=== PATIENT | male | born 1960 | race Caucasian/White ===

== ENCOUNTER 2021-02-13 00:06 | Inpatient (IN) ==
[2021-02-13] MEDS ORDERED: ALBUT/IPRATROP 3MG/0.5MG NEB 3 ML VIAL NEB STA (00:34)
[2021-02-13 00:42] LABS: Eosinophils # (auto) 0.01 K/uL (0-0.5); Eosinophils % (auto) 0.1 %; Hematocrit (blood only) 43.3 % (42-52); Hemoglobin 14.8 g/dL (14.0-18.0); Immature Granulocytes # (auto) 0.02 K/uL (0.00-0.02); Immature Granulocytes % (auto) 0.3 %; Lymphocytes # (auto) 0.44 K/uL (1.2-3.4); Lymphocytes % (auto) 6.4 %; Mean Corpuscular Hemoglobin 31.8 pg (25-34); Mean Corpuscular Hgb Conc 34.2 g/dL (32-36); Mean Corpuscular Volume 92.9 fL (80-100); Mean Platelet Volume 10.4 fL (7.4-10.4); Monocytes # (auto) 0.35 K/uL (0.11-0.59); Monocytes % (auto) 5.1 %; Neutrophils # (auto) 6.06 K/uL (1.4-6.5); Neutrophils % (auto) 88.1 %; Platelet Count 184 K/uL (130-400); RDW Standard Deviation 40.5 fL (36.4-46.3); Red Blood Count 4.66 M/uL (4.7-6.1); White Blood Count 6.88 K/uL (4.8-10.8)
[2021-02-13 01:08] LABS: Alanine Aminotransferase 100 (12-78); Aspartate Aminotransferase 85 U/L (15-37); BUN Creatinine Ratio 15.6 (10-20); Blood Urea Nitrogen 12 mg/dl (7-18); Calcium 9.1 mg/dl (8.5-10.1); Carbon Dioxide 26 mmol/L (21-32); Chloride 102 mmol/L (98-107); Creatinine Clr Calc Pharmacy 90.7 ml/min; Est GFR (African American) 115.9 ml/min; Glucose 148 mg/dl (70-99); Magnesium 1.9 mg/dl (1.8-2.4); Potassium 3.7 mmol/L (3.5-5.1); Sodium 137 mmol/L (136-145)
[2021-02-13 01:24] LABS: Albumin Globulin Ratio 0.6 (0.9-2); Alkaline Phosphatase 79 U/L (45-117); Bilirubin,Total 0.9 mg/dl (0.2-1); Globulin 4.9 gm/dl (2.5-4.0); NT Pro B Type Natriuretic Pept 100 pg/ml (0-900); Thyroid Stimulating Hormone 0.477 uIu/ml (0.300-4.500); Total Protein 7.9 gm/dl (6.4-8.2); Troponin I < 0.015 ng/ml (0-0.045)
[2021-02-13 01:27] LABS: Influenza A virus by PCR Negative (Neg); Influenza B virus by PCR Negative (Neg); RSV by PCR Negative (Neg)
[2021-02-13 01:44] LABS: SARS CoV2 RNA(COVID-19) InHosp POSITIVE (Negative)
[2021-02-13] MEDS ORDERED: DEXAMETHASONE SOD INJ 4 MG/ML VIAL IV STA (01:50)
--- NOTE | 2021-02-13 01:55 | Emergency Department Note ---
History of Present Illness General Chief complaint: Respiratory Distress Stated complaint: FALL, BACK PAIN, COVID+, COUGH Time Seen by Provider: 02/13/21 00:34 Source: patient Mode of arrival: EMS Limitations: no limitations History of Present Illness Provider complaint: back pain, cough, COVID Onset (ago): day(s) 9 Maximum Pain Intensity: 9 Exacerbated By: + movement Associated symptoms: + cough, + fever/chills, + loss of appetite, + malaise and + shortness of breath; no chest pain, no headaches or no nausea/vomiting This is a 60-year-old male presents the emergency department complaining of trouble breathing, cough, and back pain. Patient states he does have history of chronic back pain and has previously had surgery from Dr. Moeller. Patient states he tripped over his robe and fell awkwardly and "tweaked" his back. Patient states coughing makes his back pain hurt more. Patient states he first became ill the weekend following and was found to be positive for Covid. He believes there was a sick contact at dinner. Patient states he has been using OTC medications for his symptoms. He was not vaccinated against Covid. Patient states he has had a frequent coarse cough and intermittent difficulty breathing. He states he has not had a normal appetite but is not had any vomiting. He states he has had diarrhea. Denies leg swelling or rash. He states he has intermittent chest pain which she attributes to the coughing. He states he is a previous smoker, no use of MDI/nebs at home, no use of home oxygen. Denies any other history of pulmonary problems. In triage, patient found to be 78% on room air by nursing staff and was immediately placed on a room. Supplemental oxygen was started and I was called to the room immediately. My arrival patient had been transition to anoxia mask and was between 4 and 5 L, and the nurse continue to titrate up as he was still in the 80s. Pt seen during a time of high acuity and national emergency pandemic while wearing PPE. Home Medications Medication Instructions Recorded Confirmed Type albuterol sulfate 90 mcg/actuation 1 - 2 puff INHALATION UD PRN 02/13/21 02/13/21 History aerosol inhaler baclofen 10 mg tablet 10 - 20 mg PO TID 02/13/21 02/13/21 History gabapentin 800 mg tablet 800 mg PO TID 02/13/21 02/13/21 History oxycodone-acetaminophen 10 mg-325 1 tab PO Q6 PRN 02/13/21 02/13/21 History mg tablet tizanidine 4 mg tablet 2 mg PO HS 02/13/21 02/13/21 History Allergies Allergy/AdvReac Type Severity Reaction Status Date / Time No Known Allergies Allergy Unknown NKA Verified 02/13/21 00:55 Past Med/Surg History Medical History Chronic pain syndrome Social History Smoking Status: Former smoker Feels Safe at Home: Yes Review of Systems A total of 10 systems reviewed and were otherwise negative All systems reviewed & are unremarkable except as noted in HPI & below Physical Exam Vital Signs Vital Signs - 24 hr 02/13/21 00:15 02/13/21 00:55 02/13/21 02:07 Temperature 37.2 C Temperature Source Temporal Artery Scan Pulse Rate 93 H Pulse Rate [Right Finger] 80 83 Pulse Rhythm [Right Finger] Regular Regular Pulse Strength [Right Finger] Normal Normal Respiratory Rate 36 H 18 18 Respiratory Effort / Characteristics Non-Labored Spontaneous Non-Labored Spontaneous Respiratory Depth Normal Normal Respiratory Pattern Regular Regular Blood Pressure 119/71 Blood Pressure [Right Arm] 131/85 114/64 Blood Pressure Mean 87 Blood Pressure Mean [Right Arm] 100 80 Blood Pressure Position [Right Arm] Sitting Lying Pulse Oximetry 80 L 95 93 Oxygen Delivery Method Room Air Oxymask Oxymask Oxygen Flow Rate 8 8 Sepsis Recent Fever Within 48 Hours Yes Sepsis New/Unexplained Change in Mental Status No Sepsis Action Taken by Nursing No Action Required GENERAL: alert, ill appearing, well nourished, no distress, non-toxic EYE EXAM: normal conjunctiva, PERRL and EOM's grossly intact OROPHARYNX: no exudate, no erythema, lips, buccal mucosa, and tongue normal and mucous membranes are moist NECK: supple, no nuchal rigidity, no adenopathy, non-tender LUNGS: Clear to auscultation. Normal chest wall mechanics, no w/r/r, 86% on 4 L on an oxy mask, being titrated up by nursing staff HEART: no murmurs, S1 normal and S2 normal ABDOMEN: abdomen soft, non-tender, normo-active bowel sounds, no masses, no rebound or guarding. BACK: Back is symmetrical on inspection and there is no deformity, mild lumbar midline tenderness, no CVA tenderness. No evidence of trauma. SKIN: no rashes and no bruising UPPER EXTREMITIES: upper extremities are grossly normal. FROM, nml pulses b/l. LOWER EXTREMITIES: No pitting edema. FROM, nml pulses b/l. NEURO EXAM: Normal sensorium, cranial nerves II-XII grossly intact, normal speech, no gross weakness of arms, no gross weakness of legs. Gross sensation intact. Course Administered Medications Discontinued Medications Albuterol (Albut/Ipratrop 3mg/0.5mg Neb 3 Ml Vial) 3 ml NEB NOW STA Stop: 02/13/21 00:35 Last Admin: 02/13/21 00:53 Dose: 3 ml Documented by: [id number] Dexamethasone (Dexamethasone Sod Inj 4 Mg/Ml Vial) 6 mg IV NOW STA Stop: 02/13/21 01:51 Last Admin: 02/13/21 02:08 Dose: 6 mg Documented by: [id number] Remdesivir 200 mg/ Sodium (Chloride) 250 mls @ 125 mls/hr IV ONE STA; Protocol Stop: 02/13/21 04:21 Last Admin: 02/13/21 02:56 Dose: 125 mls/hr Documented by: [id number] Medical Decision Making Differential Diagnosis Differential diagnoses includes but is not limited to pneumonia, bronchitis, COPD/Asthma exacerbation, pneumothorax, pulmonary embolism, congestive heart failure, acute coronary syndrome Medical Records Attestation: I reviewed the patient's medical records. Home Medications Current Medication List: was personally reviewed by me Laboratory Data Attestation: I reviewed the patient's lab results. Result diagrams: 02/13/21 00:29 02/13/21 00:29 Lab Results 02/13/21 02/13/21 02/13/21 Range/Units 00:29 00:29 00:32 WBC 6.88 (4.8-10.8) K/uL RBC 4.66 L (4.7-6.1) M/uL Hgb 14.8 (14.0-18.0) g/dL Hct 43.3 (42-52) % MCV 92.9 (80-100) fL MCH 31.8 (25-34) pg MCHC 34.2 (32-36) g/dL RDW Std Deviation 40.5 (36.4-46.3) fL RDW Coeff of Tariq 12.0 (11.5-14.5) % Plt Count 184 (130-400) K/uL MPV 10.4 (7.4-10.4) fL Immature Gran % (Auto) 0.3 % Neut % (Auto) 88.1 % Lymph % (Auto) 6.4 % [place] % (Auto) 5.1 % Eos % (Auto) 0.1 % Baso % (Auto) 0.0 % Neut # (Auto) 6.06 (1.4-6.5) K/uL Lymph # (Auto) 0.44 L (1.2-3.4) K/uL [place] # (Auto) 0.35 (0.11-0.59) K/uL Eos # (Auto) 0.01 (0-0.5) K/uL Baso # (Auto) 0.00 (0-0.2) K/uL Immature Gran # (Auto) 0.02 (0.00-0.02) K/uL Sodium 137 (136-145) mmol/L Potassium 3.7 (3.5-5.1) mmol/L Chloride 102 (98-107) mmol/L Carbon Dioxide 26 (21-32) mmol/L Anion Gap 9.0 (3-11) BUN 12 (7-18) mg/dl Creatinine 0.77 (0.6-1.4) mg/dl Est Cr Clr Drug Dosing 90.7 ml/min Est GFR ( Amer) 115.9 ml/min Est GFR (Non-Af Amer) 100.0 ml/min BUN/Creatinine Ratio 15.6 (10-20) Glucose 148 H (70-99) mg/dl Calcium 9.1 (8.5-10.1) mg/dl Magnesium 1.9 (1.8-2.4) mg/dl Total Bilirubin 0.9 (0.2-1) mg/dl AST 85 H (15-37) U/L ALT 100 H (12-78) Alkaline Phosphatase 79 (45-117) U/L Troponin I < 0.015 (0-0.045) ng/ml NT-Pro-B Natriuret Pep 100 (0-900) pg/ml Total Protein 7.9 (6.4-8.2) gm/dl Albumin 3.0 L (3.4-5.0) gm/dl Globulin 4.9 H (2.5-4.0) gm/dl Albumin/Globulin Ratio 0.6 L (0.9-2) TSH 0.477 (0.300-4.500) uIu/ml SARS-CoV-2 (PCR) POSITIVE A* (Negative) Influenza Type A (PCR) Negative (Neg) Influenza Type B (PCR) Negative (Neg) RSV (RT-PCR) Negative (Neg) Imaging Data My Impression: X-ray: I interpreted the following studies. Chest: A single view study of the chest was reviewed and was negative for cardiomegaly, effusion, or wide mediastinum. Evolving bilateral infiltrates suggestive of acute Covid related pneumonia. ECG Data Attestation: I personally reviewed and interpreted this ECG as follows: Indication: + SOB/dyspnea Rate (beats per minute): 76 Rhythm: + normal sinus ECG Intervals/blocks: + Normal QRS and + Normal QT ECG [place]: + Normal ECG ST segments: + Normal ST segments MDM Narrative This is an ill-appearing 60-year-old male with a known history of Covid approximately day 8 in his disease course who presents due to increased cough, trouble breathing, and worsening back pain secondary to a fall. Patient's description of the fall is mechanical and I suspect likely musculoskeletal strain in a patient with history of chronic back pain and prior surgery. Patient's chest x-ray suggestive of pneumonia. Patient was placed on supplemental oxygen due to his hypoxia and slowly improved with titration up to 8 L/min. Patient otherwise hemodynamically stable. Mild elevation of transaminases noted although this is likely secondary to his viral infection. Patient made aware of results and concern especially regarding his breathing. Patient was started on dexamethasone in case discussed with hospitalist for additional management. At this time I do not suspect PE, Covid related myocarditis or pericarditis, or CHF. An order was placed for continuous cardiac monitoring. The monitor shows a rate of _76_ with _normal sinus__ rhythm. Impression & Plan Acute respiratory failure with hypoxia, Multifocal pneumonia, COVID-19, Back pain, Abnormal LFTs, Hyperglycemia Discharge Plan Visit Data Chief Complaint: Respiratory Distress Stated Complaint: FALL, BACK PAIN, COVID+, COUGH ED Provider: Lacy You Discharge Problem: Acute respiratory failure with hypoxia, Multifocal pneumonia, COVID-19, Back pain, Abnormal LFTs, Hyperglycemia Patient Disposition: Admitted As Inpatient Discharge Instructions Interventions: ED Discharge Assessment Last Done: 02/13/21 04:21 Discharge Problem: Back pain Qualifiers: Back pain location: low back pain Chronicity: chronic Back pain laterality: midline Sciatica presence: without sciatica Qualified Code(s): M54.50 - Low back pain, unspecified
[2021-02-13] MEDS ORDERED: REMDESIVIR 200 MG in SODIUM CHLORIDE 0.9% 210 ML IV STA (02:22)
--- NOTE | 2021-02-13 02:22 | History & Physical Report ---
Date of Service February 13, 2021 Assessment & Plan (1) Pneumonia due to COVID-19 virus: Plan: Multifocal pneumonia due to COVID-19 virus/acute respiratory failure with hypoxia- Dexamethasone 10 mg IV while in the ED Dexamethasone 6 mg IV every morning Remdesivir IV per protocol Duonebs every 4 hours while awake and every 2 hours when necessary. Guaifenesin extended release 1200 mg p.o. twice daily Azithromycin 500 mg IV daily Vitamin D 1000 international units p.o. every morning Zinc sulfate turn 20 mg p.o. every morning Lovenox subcu prophylaxis Nasal cannula oxygen, titrate to keep pulse ox 92 to 94% (2) Hypoxia: Plan: See above (3) Acute respiratory failure with hypoxia: Plan: See above (4) Chronic pain syndrome: Plan: Continue usual medications (5) Abnormal LFTs: Plan: AST 85, ALT 100. Follow serially in a.m., may be secondary to Covid infection (6) Multifocal pneumonia: Plan: See above History of Present Illness Chief Complaint: The patient presents to the emergency department with complaint of cough, fever and chills, loss of appetite, loss of taste and smell, generalized myalgias and arthralgias, shortness of breath and dyspnea on exertion, worsening over the past week, with onset of symptoms 9 days ago Primary Care Provider: NO PCP The patient is a 60-year-old male with chronic low back pain associated with previous surgeries, who presents with symptoms as noted above. Abnormal laboratories: AST 85, ALT 100, albumin 3.0, glucose 148. COVID-19 positive Chest x-ray with multifocal pneumonia Pulse ox 80% on room air, improved with 8 L oxygen mask to 95% Allergies Allergy/AdvReac Type Severity Reaction Status Date / Time No Known Allergies Allergy Unknown NKA Verified 02/13/21 00:55 Home Medications Medication Instructions Recorded Confirmed Type albuterol sulfate 90 mcg/actuation 1 - 2 puff INHALATION UD PRN 02/13/21 02/13/21 History aerosol inhaler baclofen 10 mg tablet 10 - 20 mg PO TID 02/13/21 02/13/21 History gabapentin 800 mg tablet 800 mg PO TID 02/13/21 02/13/21 History oxycodone-acetaminophen 10 mg-325 1 tab PO Q6 PRN 02/13/21 02/13/21 History mg tablet tizanidine 4 mg tablet 2 mg PO HS 02/13/21 02/13/21 History Past Med/Surg History Medical History (Updated 02/13/21 @ 04:37 by Paxton Cisse MD) Chronic pain syndrome Social History Smoking Status: Former smoker Feels Safe at Home: Yes Review of Systems Review of Systems: The patient denies chest pain, palpitations, lower extremity swelling, sore throat, fevers, chills, sweats, nausea, vomiting, diarrhea , constipation, abdominal pain, pelvic pain, blood in urine or stool, dysuria, urinary frequency or urgency, lightheadedness, dizziness, headache, memory loss, loss of consciousness, rash, abnormal bruising or bleeding, focal weakness, numbness or tingling in arms or legs, neck pain, or night sweats. The review of systems is otherwise negative other than for that already noted above, and at least 10 systems have been reviewed. Physical Exam Physical Exam: The patient is awake, alert and oriented 3, well developed and well nourished, normocephalic and atraumatic, lying in bed on his side, and in mild acute distress. HEENT--PERRL, EOMI, mucous membranes and oropharynx dry. Neck--supple. No JVD. No bruits. Thyroid normal, trachea midline, no adenopathy . Heart--normal S1 and S2. No murmurs, rubs or gallops. Lungs--coarse breath sounds bilaterally. Mild respiratory distress, no accessory muscle use. Abdomen--normal bowel sounds and soft. Nontender. Nondistended. Extremities--no cyanosis or clubbing. No edema. Dermatologic--normal skin turgor, normal color, no abnormal lymph nodes, no rash. Neurologic--cranial nerves II through XII grossly intact. Rheumatologic--limited exam due to generalized pain Psychiatric--normal affect. Results & Data Results & Data ([facility]) Vital Signs (Past 12 Hours) Vital Signs Temp Pulse Pulse Resp BP BP Pulse Ox 02/13/21 00:55 80 18 131/85 95 02/13/21 00:15 37.2 C 93 H 36 H 119/71 80 L Laboratory Results Laboratory Results WBC 6.88 K/uL (4.8-10.8) 02/13/21 00:29 RBC 4.66 M/uL (4.7-6.1) L 02/13/21 00: Hgb 14.8 g/dL (14.0-18.0) 02/13/21: Hct 43.3 % (42-52) 02/13/21: MCV 92.9 fL (80-100) 02/13/21 00: MCH 31.8 pg (25-34) 02/13/21: MCHC 34.2 g/dL (32-36) 02/13/21: RDW Std Deviation 40.5 fL (36.4-46.3) 02/13/21: RDW Coeff of Tariq 12.0 % (11.5-14.5) 02/13/21: Plt Count 184 K/uL (130-400) 02/13/21: MPV 10.4 fL (7.4-10.4) 02/13/21 00: Immature Gran % (Auto) 0.3 % 02/13/21: Neut % (Auto) 88.1 % 02/13/21: Lymph % (Auto) 6.4 % 02/13/21: [place] % (Auto) 5.1 % 02/13/21: Eos % (Auto) 0.1 % 02/13/21: Baso % (Auto) 0.0 % 02/13/21 00:29 Neut # (Auto) 6.06 K/uL (1.4-6.5) 02/13/21 00: Lymph # (Auto) 0.44 K/uL (1.2-3.4) L 02/13/21 00: [place] # (Auto) 0.35 K/uL (0.11-0.59) 02/13/21 00: Eos # (Auto) 0.01 K/uL (0-0.5) 02/13/21 00: Baso # (Auto) 0.00 K/uL (0-0.2) 02/13/21 00: Immature Gran # (Auto) 0.02 K/uL (0.00-0.02) 02/13/21 00: Sodium 137 mmol/L (136-145) 02/13/21:29 Potassium 3.7 mmol/L (3.5-5.1) 02/13/21 00: Chloride 102 mmol/L (98-107) 02/13/21 00: Carbon Dioxide 26 mmol/L (21-32) 02/13/21 00: Anion Gap 9.0 (3-11) 02/13/21 00: BUN 12 mg/dl (7-18) 02/13/21: Creatinine 0.77 mg/dl (0.6-1.4) 02/13/21: Est Cr Clr Drug Dosing 90.7 ml/min 02/13/21 00:29 Est GFR ( Amer) 115.9 ml/min 02/13/21 00:29 Est GFR (Non-Af Amer) 100.0 ml/min 02/13/21 00: BUN/Creatinine Ratio 15.6 (10-20) 02/13/21 00: Glucose 148 mg/dl (70-99) H 02/13/21: Calcium 9.1 mg/dl (8.5-10.1) 02/13/21 00: Magnesium 1.9 mg/dl (1.8-2.4) 02/13/21 00: Total Bilirubin 0.9 mg/dl (0.2-1) 02/13/21 00: AST 85 U/L (15-37) H 02/13/21 00:29 ALT 100 (12-78) H 02/13/21 00: Alkaline Phosphatase 79 U/L (45-117) 02/13/21 00: Troponin I < 0.015 ng/ml (0-0.045) 02/13/21 00: NT-Pro-B Natriuret Pep 100 pg/ml (0-900) 02/13/21 00: Total Protein 7.9 gm/dl (6.4-8.2) 02/13/21 00: Albumin 3.0 gm/dl (3.4-5.0) L 02/13/21 00:29 Globulin 4.9 gm/dl (2.5-4.0) H 02/13/21 00:29 Albumin/Globulin Ratio 0.6 (0.9-2) L 02/13/21 00: TSH 0.477 uIu/ml (0.300-4.500) 02/13/21 00:29 SARS-CoV-2 (PCR) POSITIVE (Negative) A* 02/13/21 00:32 Influenza Type A (PCR) Negative (Neg) 02/13/21 00:32 Influenza Type B (PCR) Negative (Neg) 02/13/21 00:32 RSV (RT-PCR) Negative (Neg) 02/13/21 00:32 Code Status & VTE Plan Code Status Full code VTE Prophylaxis Plan VTE Prophylaxis will be ordered: Yes PG Care Time/CCT Total # of Minutes Spent Total Time Spent with Patient: Total time spent is greater than 50% in coordination of care (as documented) at patient's floor/unit and/or counseling patient: Coding Level of Care Code 26601 Initial Inpt Care Lvl 3 Diagnoses Pneumonia due to COVID-19 virus U07.1; J12.82 Hypoxia R09.02 Acute respiratory failure with hypoxia J96.01 Chronic pain syndrome G89.4 Abnormal LFTs R79.89 Multifocal pneumonia J18.9
[2021-02-13] MEDS ORDERED: ONDANSETRON INJ 2 MG/ML 2 ML VIAL IV PRN (04:22)
[2021-02-13] MEDS ORDERED: SODIUM CHLORIDE 0.9% 10ML FLUSH IV SCH (05:00)
[2021-02-13] MEDS: AZITHROMYCIN 500 MG in DEXTROSE 5% 250 ML IV SCH (06:17)
[2021-02-13] MEDS ORDERED: ALBUT/IPRATROP 3MG/0.5MG NEB 3 ML VIAL NEB SCH (07:00)
--- NOTE | 2021-02-13 07:13 | XRay Report ---
XR chest 1V portable CLINICAL HISTORY: sob, hyopxia. Reported positive Covid COMPARISON STUDY: No previous studies for comparison. TECHNIQUE: 1 view of the chest FINDINGS: Single frontal view of the chest demonstrates the cardiomediastinal silhouette to be within normal li mits. Mild interstitial and alveolar opacities are present bilaterally. The findings are most charact eristic of a viral type pneumonitis. Covid 19 pneumonia should be excluded. There is no evidence for pleural effusion. There is no evidence for vascular congestion. There is no acute osseous pathology. IMPRESSION: Mild interstitial and alveolar opacities bilaterally characteristic of a viral type pneum onitis and probable early Covid 19 pneumonia. ACT 112: Negative or not required by law. Electronically signed by: Mekhi Phan M.D. 02/13/2021 7:12 AM
[2021-02-13] MEDS: dexAMETHasone 6 MG in SYRINGE 0 ML IV SCH (08:03)
[2021-02-13] MEDS: ZINC SULFATE 220 MG CAPSULE PO SCH (08:04)
[2021-02-13] MEDS: BACLOFEN 20 MG TAB PO SCH ×3 (08:04→21:19)
[2021-02-13] MEDS: GABAPENTIN 800 MG TAB PO SCH ×3 (08:04→21:21)
[2021-02-13] MEDS: ENOXAPARIN INJ 30 MG/0.3 ML SYR SQ SCH ×2 (08:04→21:26)
[2021-02-13] MEDS: CHOLECALCIFEROL 1,000 UNITS 25 MCG TAB PO SCH (08:04)
[2021-02-13] MEDS: guaiFENesin 600 MG TABCR PO SCH ×2 (08:04→21:20)
--- NOTE | 2021-02-13 08:15 | XRay Report ---
XR lumbar spine 2-3V CLINICAL HISTORY: back pain COMPARISON STUDY: Fluoroscopic images of the lumbar spine October 15, 2009. FINDINGS: There are postoperative findings consistent with L3-L4 and L4-L5 discectomies. Posterior de compression and bilateral pedicle screw fusion from L3 through L5 is noted. Hardware is intact. There is mild levoscoliosis of the lumbar spine. No acute fracture. Vertebral body heights are maintained. There is moderate disc space narrowing at L2-L3. IMPRESSION: 1. No acute lumbar spine fracture or subluxation. 2. Status post L3-L5 discectomy, posterior decompression bilateral pedicle screw fusion. Hardware int act. 3. Mild levoscoliosis of the lumbar spine. ACT 112: Negative or not required by law. Electronically signed by: César Walker M.D. 02/13/2021 8:14 AM
[2021-02-13] MEDS ORDERED: ALBUT/IPRATROP 3MG/0.5MG NEB 3 ML VIAL NEB PRN (08:33)
--- NOTE | 2021-02-13 15:52 | Electrocardiogram Report ---
Test Reason : Blood Pressure : / mmHG Vent. Rate : 076 BPM Atrial Rate : 076 BPM P-R Int : 154 ms QRS Dur : 090 ms QT Int : 400 ms P-R-T Axes : 040 012 028 degrees QTc Int : 450 ms Normal sinus rhythm Normal ECG When compared with ECG of 08-OCT-2009 11:37, QT has lengthened Confirmed by Artur Olmedo ([id number]) on 02/13/2021 3:52:49 PM Referred By: REFERRED SELF Confirmed By:Artur Olmedo
--- NOTE | 2021-02-13 17:53 | History & Physical Bridge Note ---
Date of Service February 13, 2021 History & Physical Bridge Note I have examined the patient, reviewed the History & Physical and in the interval since the performance of the History & Physical I have noted the following changes of clinical significance: patient doing well on 7L, no distress, breathing easy eating a little better, had not eaten for days until today discussed that we will take this one day at a time, may need more oxygen before he gets better will check labs in the morning awaiting a bed outside of the ED at this time
[2021-02-13] MEDS: tiZANidine HCL 4 MG TABLET PO SCH (21:20)
[2021-02-13] MEDS: REMDESIVIR 100 MG in SODIUM CHLORIDE 0.9% 230 ML IV SCH (21:23)
[2021-02-13] MEDS: SODIUM CHLORIDE 0.9% 10ML FLUSH IV SCH (22:32)
[2021-02-14] MEDS: AZITHROMYCIN 500 MG in DEXTROSE 5% 250 ML IV SCH (06:04)
[2021-02-14 06:13] LABS: Basophils # (auto) 0.01 K/uL (0-0.2); Basophils % (auto) 0.1 %; Hematocrit (blood only) 39.3 % (42-52); Immature Granulocytes # (auto) 0.02 K/uL (0.00-0.02); Immature Granulocytes % (auto) 0.2 %; Lymphocytes # (auto) 0.29 K/uL (1.2-3.4); Lymphocytes % (auto) 3.5 %; Mean Corpuscular Hemoglobin 30.7 pg (25-34); Mean Corpuscular Hgb Conc 33.1 g/dL (32-36); Mean Corpuscular Volume 92.7 fL (80-100); Mean Platelet Volume 10.4 fL (7.4-10.4); Monocytes # (auto) 0.32 K/uL (0.11-0.59); Monocytes % (auto) 3.9 %; Neutrophils # (auto) 7.59 K/uL (1.4-6.5); Neutrophils % (auto) 92.3 %; Platelet Count 220 K/uL (130-400); RDW Standard Deviation 40.8 fL (36.4-46.3); Red Blood Count 4.24 M/uL (4.7-6.1); White Blood Count 8.23 K/uL (4.8-10.8)
[2021-02-14 06:56] LABS: Albumin Level 2.6 gm/dl (3.4-5.0); BUN Creatinine Ratio 30.8 (10-20); Calcium 9.1 mg/dl (8.5-10.1); Creatinine Clr Calc Pharmacy 114.3 ml/min; Est GFR (African American) 117.2 ml/min; Est GFR (Non-African American) 101.1 ml/min; Potassium 3.8 mmol/L (3.5-5.1)
[2021-02-14 06:59] LABS: Albumin Globulin Ratio 0.6 (0.9-2); Bilirubin,Total 0.7 mg/dl (0.2-1); Globulin 4.6 gm/dl (2.5-4.0); Total Protein 7.2 gm/dl (6.4-8.2)
--- NOTE | 2021-02-14 10:06 | Hospitalist Progress Note ---
Date of Service February 14, 2021 Assessment & Plan (1) Pneumonia due to COVID-19 virus: Plan: Multifocal pneumonia due to COVID-19 virus/acute respiratory failure with hypoxia currently he is on 9L mask, no distress, try to wean as tolerated dexamethasone 6mg IV daily, day 2 Remdesivir, day 2 Zithromax 500mg IV daily, day 2 flutter valve, incentive spirometer Lovenox prophylaxis (2) Hypoxia: Plan: acute hypoxic respiratory failure on 9L (3) Acute respiratory failure with hypoxia: Plan: See above (4) Chronic pain syndrome: Plan: Continue usual medications having low back pain from fall no fracturs on lumbar x-ray, has h/o surgery (5) Abnormal LFTs: Plan: AST 85, ALT 100. Follow serially in a.m., may be secondary to Covid infection (6) Multifocal pneumonia: Plan: See above Admission and Anticipated Discharge Date Admission Date: February 13, 2021 Subjective patient doing okay on 9L mask, coughing up a lot of sputum this morning deep breaths triggers coughing spells will get him flutter valve and incentive spirometer he is eating and drinking well reviewed chart and labs no fever, he is weak and fatigued c/o low back pain from a fall at home, he has a history of lumbar surgery Review of Systems Review of Systems: All systems reviewed & are unremarkable except as noted in Subjective Constitutional: + fatigue and + weakness; no fever Respiratory: + cough, + chest congestion, + dyspnea, + dyspnea on exertion and + sputum production Cardiovascular: no chest pain and no edema Gastrointestinal: + constipation; no nausea, no vomiting and no diarrhea/loose stools Musculoskeletal: + back pain (low) Physical Exam Physical Exam: General: well developed, ill appearing male, well hydrated and well nourished Neck: supple, trachea midline, normal thyroid Lungs: rhonchi bilaterally, slightly tachypneic, + accessory muscle use, + cough Heart: regular S1 and S2, no murmur, peripheral pulses normal, capillary refill normal, no edema Abdomen: soft, NT, ND, + BS, no hepatomegaly, normal to percussion Extremities: normal in appearance, no cyanosis, no petechiae, strength is 5/5 bilaterally Neuro: awake, cooperative, moves all extremities, no focal motor deficits, CN II-XII intact, sensation in extremities intact, normal speech Skin: warm, dry, no rash, normal turgor Psych: Awake, alert oriented x 3, euthymic affect Results & Data Results & Data ([facility]) Vital Signs (Past 12 Hours) Vital Signs Temp Pulse Resp BP Pulse Ox Pulse Ox 02/14/21 07:34 36.6 C 58 L 20 134/84 94 02/14/21 03:10 56 L 18 110/54 L 96 96 02/14/21 00:56 55 L 18 111/62 97 Laboratory Results Laboratory Results - last 24 hr 02/14/21 02/14/21 05:51 05:51 WBC 8.23 RBC 4.24 L Hgb 13.0 L Hct 39.3 L MCV 92.7 MCH 30.7 MCHC 33.1 RDW Std Deviation 40.8 RDW Coeff of Tariq 12.0 Plt Count 220 MPV 10.4 Immature Gran % (Auto) 0.2 Neut % (Auto) 92.3 Lymph % (Auto) 3.5 [place] % (Auto) 3.9 Eos % (Auto) 0.0 Baso % (Auto) 0.1 Neut # (Auto) 7.59 H Lymph # (Auto) 0.29 L [place] # (Auto) 0.32 Eos # (Auto) 0.00 Baso # (Auto) 0.01 Immature Gran # (Auto) 0.02 Sodium 139 Potassium 3.8 Chloride 107 Carbon Dioxide 25 Anion Gap 7.0 BUN 23 H D Creatinine 0.75 Est Cr Clr Drug Dosing 114.3 Est GFR ( Amer) 117.2 Est GFR (Non-Af Amer) 101.1 BUN/Creatinine Ratio 30.8 H Glucose 156 H Calcium 9.1 Total Bilirubin 0.7 AST 38 H ALT 67 Alkaline Phosphatase 67 Total Protein 7.2 Albumin 2.6 L Globulin 4.6 H Albumin/Globulin Ratio 0.6 L Medications Administered Current Inpatient Medications Albuterol (Albut/Ipratrop 3mg/0.5mg Neb 3 Ml Vial) 3 ml NEB Q4R PRN PRN Reason: Shortness Of Breath Or Wheezing Stop: 03/15/21 08:31 Baclofen (Baclofen 20 Mg Tab) 20 mg PO TID [facility] Stop: 03/15/21 08:59 Last Admin: 02/13/21 21:19 Dose: 20 mg Documented by: Enoxaparin Sodium (Enoxaparin Inj 30 Mg/0.3 Ml Syr) 30 mg SQ Q12H [facility] Stop: 03/15/21 08:59 Last Admin: 02/13/21 21:26 Dose: 30 mg Documented by: Gabapentin (Gabapentin 800 Mg Tab) 800 mg PO TID [facility] Stop: 03/15/21 08:59 Last Admin: 02/13/21 21:21 Dose: 800 mg Documented by: Guaifenesin (Guaifenesin 600 Mg Tabcr) 1,200 mg PO Q12 [facility] Stop: 03/15/21 08:59 Last Admin: 02/13/21 21:20 Dose: 1,200 mg Documented by: Dexamethasone 6 mg/ Syringe 1.5 mls @ 1 mls/min IV Q24H [facility] Stop: 03/15/21 08:59 Last Admin: 02/13/21 08:03 Dose: 1 mls/min Documented by: Remdesivir 100 mg/ Sodium (Chloride) 250 mls @ 250 mls/hr IV Q24H [facility]; Protocol Stop: 02/16/21 20:59 Last Infusion: 02/13/21 22:32 Dose: Infused Documented by: Azithromycin 500 mg/ Dextrose 255 mls @ 125 mls/hr IV Q24H [facility] Stop: 02/20/21 05:59 Last Infusion: 02/14/21 09:24 Dose: Infused Documented by: Ondansetron HCl (Ondansetron Inj 2 Mg/Ml 2 Ml Vial) 4 mg IV Q6H PRN PRN Reason: Nausea Stop: 03/15/21 04:21 Oxycodone/Acetaminophen (Oxycodone/Acetaminophen 10-325 Tab) 1 tab PO Q6 PRN PRN Reason: Moderate Pain Stop: 02/27/21 04:21 Sodium Chloride (Sodium Chloride 0.9% 10ml Flush) 30 ml IV Q24H [facility] Stop: 02/16/21 21:01 Last Admin: 02/13/21 22:32 Dose: 30 ml Documented by: Tizanidine HCl (Tizanidine Hcl 4 Mg Tablet) 2 mg PO HS [facility] Stop: 03/15/21 20:59 Last Admin: 02/13/21 21:20 Dose: 2 mg Documented by: Vitamin D (Cholecalciferol 1,000 Units 25 Mcg Tab) 1,000 units PO QAM [facility] Stop: 03/15/21 08:59 Last Admin: 02/13/21 08:04 Dose: 1,000 units Documented by: Zinc Sulfate (Zinc Sulfate 220 Mg Capsule) 220 mg PO QAM [facility] Stop: 03/15/21 08:59 Last Admin: 02/13/21 08:04 Dose: 220 mg Documented by: PG Care Time/CCT Total # of Minutes Spent Total Time Spent with Patient: Total time spent is greater than 50% in coordination of care (as documented) at patient's floor/unit and/or counseling patient: Coding Level of Care Code 83033 Subseq Hosp Care Lvl 2 Diagnoses Pneumonia due to COVID-19 virus U07.1; J12.82 Hypoxia R09.02 Acute respiratory failure with hypoxia J96.01 Chronic pain syndrome G89.4 Abnormal LFTs R79.89 Multifocal pneumonia J18.9
[2021-02-14] MEDS: CHOLECALCIFEROL 1,000 UNITS 25 MCG TAB PO SCH (10:45)
[2021-02-14] MEDS: BACLOFEN 20 MG TAB PO SCH ×3 (10:45→20:41)
[2021-02-14] MEDS: ZINC SULFATE 220 MG CAPSULE PO SCH (10:46)
[2021-02-14] MEDS: dexAMETHasone 6 MG in SYRINGE 0 ML IV SCH (10:46)
[2021-02-14] MEDS: guaiFENesin 600 MG TABCR PO SCH ×2 (10:46→20:42)
[2021-02-14] MEDS: ENOXAPARIN INJ 30 MG/0.3 ML SYR SQ SCH ×2 (10:46→20:41)
[2021-02-14] MEDS: GABAPENTIN 800 MG TAB PO SCH ×3 (10:46→20:41)
[2021-02-14] MEDS: REMDESIVIR 100 MG in SODIUM CHLORIDE 0.9% 230 ML IV SCH (20:40)
[2021-02-14] MEDS: tiZANidine HCL 4 MG TABLET PO SCH (20:42)
[2021-02-14] MEDS: SODIUM CHLORIDE 0.9% 10ML FLUSH IV SCH (21:59)
[2021-02-15] MEDS: AZITHROMYCIN 500 MG in DEXTROSE 5% 250 ML IV SCH (05:33)
[2021-02-15 05:47] LABS: Hematocrit (blood only) 38.2 % (42-52); Hemoglobin 12.7 g/dL (14.0-18.0); Immature Granulocytes # (auto) 0.03 K/uL (0.00-0.02); Immature Granulocytes % (auto) 0.4 %; Lymphocytes # (auto) 0.35 K/uL (1.2-3.4); Lymphocytes % (auto) 4.2 %; Mean Corpuscular Hemoglobin 30.9 pg (25-34); Mean Corpuscular Hgb Conc 33.2 g/dL (32-36); Mean Corpuscular Volume 92.9 fL (80-100); Mean Platelet Volume 10.4 fL (7.4-10.4); Monocytes # (auto) 0.36 K/uL (0.11-0.59); Monocytes % (auto) 4.3 %; Neutrophils # (auto) 7.56 K/uL (1.4-6.5); Neutrophils % (auto) 91.1 %; Platelet Count 256 K/uL (130-400); RDW Standard Deviation 40.8 fL (36.4-46.3); Red Blood Count 4.11 M/uL (4.7-6.1)
[2021-02-15 06:13] LABS: Albumin Level 2.5 gm/dl (3.4-5.0); BUN Creatinine Ratio 32.3 (10-20); Calcium 8.9 mg/dl (8.5-10.1); Creatinine Clr Calc Pharmacy 126.1 ml/min; Est GFR (Non-African American) 105.3 ml/min; Potassium 4.3 mmol/L (3.5-5.1)
[2021-02-15 06:15] LABS: Albumin Globulin Ratio 0.6 (0.9-2); Bilirubin,Total 0.5 mg/dl (0.2-1); Globulin 4.3 gm/dl (2.5-4.0); Total Protein 6.8 gm/dl (6.4-8.2)
[2021-02-15] MEDS ORDERED: FUROSEMIDE INJ 20 MG/2 ML VIAL IV ONE (07:52)
[2021-02-15] MEDS: ENOXAPARIN INJ 30 MG/0.3 ML SYR SQ SCH ×2 (08:06→20:52)
[2021-02-15] MEDS: GABAPENTIN 800 MG TAB PO SCH ×3 (08:07→20:53)
[2021-02-15] MEDS: guaiFENesin 600 MG TABCR PO SCH ×2 (08:07→20:54)
[2021-02-15] MEDS: BACLOFEN 20 MG TAB PO SCH ×3 (08:07→20:52)
[2021-02-15] MEDS: ZINC SULFATE 220 MG CAPSULE PO SCH (08:07)
[2021-02-15] MEDS: CHOLECALCIFEROL 1,000 UNITS 25 MCG TAB PO SCH (08:07)
[2021-02-15] MEDS: dexAMETHasone 6 MG in SYRINGE 0 ML IV SCH (09:25)
--- NOTE | 2021-02-15 13:57 | Hospitalist Progress Note ---
Date of Service February 15, 2021 Assessment & Plan (1) Pneumonia due to COVID-19 virus: Plan: Multifocal pneumonia due to COVID-19 virus/acute respiratory failure with hypoxia oxygen requirements trending up, was on 9L yesterday, now on 12-15L mask today dexamethasone 6mg IV daily, day 3 Remdesivir, day 3 Zithromax 500mg IV daily, day 3 Lasix 20mg IV given this morning with good response treat again tomorrow if he is eating/drinking well flutter valve, incentive spirometer Lovenox prophylaxis (2) Hypoxia: Plan: acute hypoxic respiratory failure on 12-15L mask (3) Acute respiratory failure with hypoxia: Plan: See above (4) Chronic pain syndrome: Plan: Continue usual medications having low back pain from fall no fracturs on lumbar x-ray, has h/o surgery (5) Abnormal LFTs: Plan: AST 85, ALT 100. Follow serially in a.m., may be secondary to Covid infection (6) Multifocal pneumonia: Plan: See above Admission and Anticipated Discharge Date Admission Date: February 13, 2021 Subjective patient continues to have dyspnea, frequent cough that is producing thick yellow sputum he was foolish, took his oxygen off while eating, saturations dropped to 60's he took his oxygen off to stand up and walk to bathroom, told him he needs to wear this all the time c/o low back pain no fever, no chills he is on 12-15L mask today Review of Systems Review of Systems: All systems reviewed & are unremarkable except as noted in Subjective Respiratory: + cough, + chest congestion, + dyspnea, + dyspnea on exertion, + pain with cough and + sputum production Physical Exam Physical Exam: General: well developed, ill appearing male, well hydrated and well nourished Neck: supple, trachea midline, normal thyroid Lungs: rhonchi bilaterally, slightly tachypneic, + accessory muscle use, + cough Heart: regular S1 and S2, no murmur, peripheral pulses normal, capillary refill normal, no edema Abdomen: soft, NT, ND, + BS, no hepatomegaly, normal to percussion Extremities: normal in appearance, no cyanosis, no petechiae, strength is 5/5 bilaterally Neuro: awake, cooperative, moves all extremities, no focal motor deficits, CN II-XII intact, sensation in extremities intact, normal speech Skin: warm, dry, no rash, normal turgor Psych: Awake, alert oriented x 3, euthymic affect Results & Data Results & Data ([facility]) Vital Signs (Past 12 Hours) Vital Signs Temp Pulse Resp BP Pulse Ox Pulse Ox 02/15/21 12:25 36.8 C 58 L 26 H 139/74 91 02/15/21 03:00 36.8 C 51 L 21 112/62 94 94 Laboratory Results Laboratory Results - last 24 hr 02/15/21 02/15/21 05:12 05:12 WBC 8.30 RBC 4.11 L Hgb 12.7 L Hct 38.2 L MCV 92.9 MCH 30.9 MCHC 33.2 RDW Std Deviation 40.8 RDW Coeff of Tariq 12.0 Plt Count 256 MPV 10.4 Immature Gran % (Auto) 0.4 Neut % (Auto) 91.1 Lymph % (Auto) 4.2 [place] % (Auto) 4.3 Eos % (Auto) 0.0 Baso % (Auto) 0.0 Neut # (Auto) 7.56 H Lymph # (Auto) 0.35 L [place] # (Auto) 0.36 Eos # (Auto) 0.00 Baso # (Auto) 0.00 Immature Gran # (Auto) 0.03 H Sodium 138 Potassium 4.3 Chloride 107 Carbon Dioxide 26 Anion Gap 5.0 BUN 22 H Creatinine 0.68 Est Cr Clr Drug Dosing 126.1 Est GFR ( Amer) 122.0 Est GFR (Non-Af Amer) 105.3 BUN/Creatinine Ratio 32.3 H Glucose 131 H Calcium 8.9 Total Bilirubin 0.5 AST 26 ALT 55 Alkaline Phosphatase 63 Total Protein 6.8 Albumin 2.5 L Globulin 4.3 H Albumin/Globulin Ratio 0.6 L Medications Administered Current Inpatient Medications Albuterol (Albut/Ipratrop 3mg/0.5mg Neb 3 Ml Vial) 3 ml NEB Q4R PRN PRN Reason: Shortness Of Breath Or Wheezing Stop: 03/15/21 08:31 Baclofen (Baclofen 20 Mg Tab) 20 mg PO TID [facility] Stop: 03/15/21 08:59 Last Admin: 02/15/21 13:44 Dose: 20 mg Documented by: Enoxaparin Sodium (Enoxaparin Inj 30 Mg/0.3 Ml Syr) 30 mg SQ Q12H [facility] Stop: 03/15/21 08:59 Last Admin: 02/15/21 08:06 Dose: 30 mg Documented by: Gabapentin (Gabapentin 800 Mg Tab) 800 mg PO TID [facility] Stop: 03/15/21 08:59 Last Admin: 02/15/21 13:44 Dose: 800 mg Documented by: Guaifenesin (Guaifenesin 600 Mg Tabcr) 1,200 mg PO Q12 [facility] Stop: 03/15/21 08:59 Last Admin: 02/15/21 08:07 Dose: 1,200 mg Documented by: Dexamethasone 6 mg/ Syringe 1.5 mls @ 1 mls/min IV Q24H [facility] Stop: 03/15/21 08:59 Last Admin: 02/15/21 09:25 Dose: 1 mls/min Documented by: Remdesivir 100 mg/ Sodium (Chloride) 250 mls @ 250 mls/hr IV Q24H [facility]; Protocol Stop: 02/16/21 20:59 Last Infusion: 02/14/21 21:59 Dose: Infused Documented by: Azithromycin 500 mg/ Dextrose 255 mls @ 125 mls/hr IV Q24H [facility] Stop: 02/20/21 05:59 Last Infusion: 02/15/21 08:12 Dose: Infused Documented by: Ondansetron HCl (Ondansetron Inj 2 Mg/Ml 2 Ml Vial) 4 mg IV Q6H PRN PRN Reason: Nausea Stop: 03/15/21 04:21 Oxycodone/Acetaminophen (Oxycodone/Acetaminophen 10-325 Tab) 1 tab PO Q6 PRN PRN Reason: Moderate Pain Stop: 02/27/21 04:21 Sodium Chloride (Sodium Chloride 0.9% 10ml Flush) 30 ml IV Q24H [facility] Stop: 02/16/21 21:01 Last Admin: 02/14/21 21:59 Dose: 30 ml Documented by: Tizanidine HCl (Tizanidine Hcl 4 Mg Tablet) 2 mg PO HS [facility] Stop: 03/15/21 20:59 Last Admin: 02/14/21 20:42 Dose: 2 mg Documented by: Vitamin D (Cholecalciferol 1,000 Units 25 Mcg Tab) 1,000 units PO QAM [facility] Stop: 03/15/21 08:59 Last Admin: 02/15/21 08:07 Dose: 1,000 units Documented by: Zinc Sulfate (Zinc Sulfate 220 Mg Capsule) 220 mg PO QAM [facility] Stop: 03/15/21 08:59 Last Admin: 02/15/21 08:07 Dose: 220 mg Documented by: PG Care Time/CCT Total # of Minutes Spent Total Time Spent with Patient: Total time spent is greater than 50% in coordination of care (as documented) at patient's floor/unit and/or counseling patient: Coding Level of Care Code 03990 Subseq Hosp Care Lvl 2 Diagnoses Pneumonia due to COVID-19 virus U07.1; J12.82 Hypoxia R09.02 Acute respiratory failure with hypoxia J96.01 Chronic pain syndrome G89.4 Abnormal LFTs R79.89 Multifocal pneumonia J18.9
[2021-02-15] MEDS: REMDESIVIR 100 MG in SODIUM CHLORIDE 0.9% 230 ML IV SCH (20:47)
[2021-02-15] MEDS: tiZANidine HCL 4 MG TABLET PO SCH (20:54)
[2021-02-15] MEDS: SODIUM CHLORIDE 0.9% 10ML FLUSH IV SCH (22:11)
[2021-02-16] MEDS: oxyCODONE/ACETAMINOPHEN 10-325 TAB PO PRN (04:11)
[2021-02-16] MEDS: AZITHROMYCIN 500 MG in DEXTROSE 5% 250 ML IV SCH (06:04)
[2021-02-16 07:01] LABS: BUN Creatinine Ratio 23.2 (10-20); C Reactive Protein 7.84 mg/dl (0-0.29); Calcium 8.5 mg/dl (8.5-10.1); Creatinine Clr Calc Pharmacy 98.6 ml/min; Est GFR (African American) 110.3 ml/min; Est GFR (Non-African American) 95.1 ml/min; Potassium 3.5 mmol/L (3.5-5.1)
--- NOTE | 2021-02-16 08:25 | Hospitalist Progress Note ---
Date of Service February 16, 2021 Assessment & Plan (1) Pneumonia due to COVID-19 virus: Plan: Multifocal pneumonia due to COVID-19 virus/acute respiratory failure with hypoxia oxygen requirements trending up 15L mask today dexamethasone 6mg IV daily, Remdesivir LD 02/17 Zithromax 500mg IV daily, oxygen and CRP up will start baricitinib Lasix 20mg IV given with good response flutter valve, incentive spirometer Lovenox prophylaxis (2) Hypoxia: Plan: acute hypoxic respiratory failure on 15L mask (3) Acute respiratory failure with hypoxia: Plan: See above (4) Chronic pain syndrome: Plan: Continue usual medications pain is in good control having low back pain from fall no fractures on lumbar x-ray, has h/o surgery (5) Abnormal LFTs: Plan: AST 85, ALT 100. Follow serially in a.m., transaminitis secondary to Covid infection (6) Multifocal pneumonia: Plan: See above (7) DVT prophylaxis: Plan: enoxaparin 0.5 mg bid Admission and Anticipated Discharge Date Admission Date: February 13, 2021 Subjective patient continues to have dyspnea, frequent cough that is producing sputum c/o low back pain no fever, no chills he is on 15L mask today discussed baricitinib with the patient and his agreement understanding is experimental use only Review of Systems Review of Systems: Moderate distress and fatigue no headache, no visual changes no speech or swallowing issues no chest pain, pressure or palpitations Continue shortness of breath, nonproductive cough or wheezes no abdominal pain, nausea or vomiting, no diarrhea no dysuria, hematuria or frequency no focal joint pain or swelling no back pain, CVA tenderness or radicular pain no bruising, bleeding or rashes no focal signs of weakness or numbness or altered sensation no complaints of anxiety or depression.. Physical Exam Physical Exam: The patient appeared mild to moderate respiratory distress Vital signs as documented. Head exam is normocephalic atraumatic Neck is without JVD, thyromegaly, or carotid bruits. Lungs are coarse bilaterally in all lung roman, tachypnea Cardiac exam, Rhythm is regular.. No murmurs, rubs or gallops. Abdominal exam reveals normal bowel sounds, soft non tender, no masses Extremities are nonedematous and both pedal pulses are present Neurologic exam is alert and oriented, no focal loss of strength or sensation Skin is without bruises or rashes Psychologically is without concerns for anxiety or depression.. Results & Data Results & Data ([facility]) Vital Signs (Past 12 Hours) Vital Signs Temp Pulse Pulse Resp BP Pulse Ox 02/16/21 08:05 97.7 F 61 18 108/62 93 02/16/21 03:43 98.1 F 54 L 20 100/58 L 93 02/16/21 02:14 49 L 02/15/21 23:48 97.5 F L 55 L 22 139/81 89 L PG Care Time/CCT Total # of Minutes Spent Total Time Spent with Patient: Total time spent is greater than 50% in coordination of care (as documented) at patient's floor/unit and/or counseling patient: Coding Level of Care Code 31627 Subseq Hosp Care Lvl 3 Diagnoses Pneumonia due to COVID-19 virus U07.1; J12.82 Hypoxia R09.02 Acute respiratory failure with hypoxia J96.01 Chronic pain syndrome G89.4 Abnormal LFTs R79.89 Multifocal pneumonia J18.9 DVT prophylaxis Z29.9
[2021-02-16] MEDS: dexAMETHasone 6 MG in SYRINGE 0 ML IV SCH (08:34)
[2021-02-16] MEDS: guaiFENesin 600 MG TABCR PO SCH ×2 (08:35→21:13)
[2021-02-16] MEDS: GABAPENTIN 800 MG TAB PO SCH ×3 (08:35→21:14)
[2021-02-16] MEDS: FUROSEMIDE INJ 20 MG/2 ML VIAL IV SCH (08:35)
[2021-02-16] MEDS: BACLOFEN 20 MG TAB PO SCH ×3 (08:35→21:12)
[2021-02-16] MEDS: CHOLECALCIFEROL 1,000 UNITS 25 MCG TAB PO SCH (08:35)
[2021-02-16] MEDS: ZINC SULFATE 220 MG CAPSULE PO SCH (08:35)
[2021-02-16] MEDS: ENOXAPARIN INJ 30 MG/0.3 ML SYR SQ SCH ×2 (08:36→21:13)
[2021-02-16] MEDS ORDERED: BARICITINIB COMMUNICATION ONE (15:03)
[2021-02-16] MEDS: 4mg Daily x 14 days (eGFR >60 mL/min/1.73m2) PO SCH (16:13)
[2021-02-16] MEDS: REMDESIVIR 100 MG in SODIUM CHLORIDE 0.9% 230 ML IV SCH (19:55)
[2021-02-16] MEDS: SODIUM CHLORIDE 0.9% 10ML FLUSH IV SCH (21:11)
[2021-02-16] MEDS: tiZANidine HCL 4 MG TABLET PO SCH (21:12)
[2021-02-17] MEDS: AZITHROMYCIN 500 MG in DEXTROSE 5% 250 ML IV SCH (05:34)
[2021-02-17] MEDS: ZINC SULFATE 220 MG CAPSULE PO SCH (08:35)
[2021-02-17] MEDS: CHOLECALCIFEROL 1,000 UNITS 25 MCG TAB PO SCH (08:35)
[2021-02-17] MEDS: dexAMETHasone 6 MG in SYRINGE 0 ML IV SCH (08:35)
[2021-02-17] MEDS: BACLOFEN 20 MG TAB PO SCH ×3 (08:35→20:28)
[2021-02-17] MEDS: guaiFENesin 600 MG TABCR PO SCH ×2 (08:35→20:29)
[2021-02-17] MEDS: ENOXAPARIN INJ 30 MG/0.3 ML SYR SQ SCH ×2 (08:36→20:27)
[2021-02-17] MEDS: GABAPENTIN 800 MG TAB PO SCH ×3 (08:36→20:28)
[2021-02-17] MEDS: FUROSEMIDE INJ 20 MG/2 ML VIAL IV SCH (08:36)
[2021-02-17] MEDS: 4mg Daily x 14 days (eGFR >60 mL/min/1.73m2) PO SCH (08:42)
--- NOTE | 2021-02-17 14:56 | Hospitalist Progress Note ---
Date of Service February 17, 2021 Assessment & Plan (1) Pneumonia due to COVID-19 virus: Plan: Multifocal pneumonia due to COVID-19 virus/acute respiratory failure with hypoxia oxygen requirements 15L mask 07/18/2020 dexamethasone 6mg IV daily, Remdesivir LD 02/17 Zithromax 500mg IV daily, baricitinib started 02/16 last dose 03/02 Lasix 20mg IV given with good response flutter valve, incentive spirometer Lovenox prophylaxis (2) Hypoxia: Plan: acute hypoxic respiratory failure on 15L mask (3) Acute respiratory failure with hypoxia: Plan: Significant but stable (4) Chronic pain syndrome: Plan: Continue usual medications pain is in good control having low back pain from fall no fractures on lumbar x-ray, has h/o surgery Lidoderm patch started scheduled Tylenol be given (5) Abnormal LFTs: Plan: AST 85, ALT 100. Follow serially in a.m., transaminitis secondary to Covid infection has resolved (6) Multifocal pneumonia: Plan: See above (7) DVT prophylaxis: Plan: enoxaparin 0.5 mg bid Admission and Anticipated Discharge Date Admission Date: February 13, 2021 Subjective patient feels slight improvement with his dyspnea, frequent cough that is producing lessening sputum c/o persistent low back pain consistent with prehospital issues he is on 15L mask today Review of Systems Review of Systems: Moderate distress and fatigue no headache, no visual changes no speech or swallowing issues no chest pain, pressure or palpitations Continue shortness of breath, nonproductive cough or wheezes no abdominal pain, nausea or vomiting, no diarrhea no dysuria, hematuria or frequency no focal joint pain or swelling no back pain, CVA tenderness or radicular pain no bruising, bleeding complained of longstanding itchy rash to his back prehospital no focal signs of weakness or numbness or altered sensation no complaints of anxiety or depression.. Physical Exam Physical Exam: The patient appeared mild to moderate respiratory distress Vital signs as documented. Head exam is normocephalic atraumatic Neck is without JVD, thyromegaly, or carotid bruits. Lungs are coarse bilaterally in all lung roman, tachypnea Cardiac exam, Rhythm is regular.. No murmurs, rubs or gallops. Abdominal exam reveals normal bowel sounds, soft non tender, no masses Extremities are nonedematous and both pedal pulses are present Neurologic exam is alert and oriented, no focal loss of strength or sensation Skin is with keratosis across his back patient claims them to be itchy Psychologically is without concerns for anxiety or depression.. Results & Data Results & Data ([facility]) Vital Signs (Past 12 Hours) Vital Signs Temp Pulse Pulse Resp BP Pulse Ox 02/17/21 12:20 97.7 F 60 20 165/43 H 98 02/17/21 08:03 97.7 F 53 L 18 126/78 96 02/17/21 07:41 49 L 02/17/21 03:53 97.7 F 59 L 22 104/65 95 PG Care Time/CCT Total # of Minutes Spent Total Time Spent with Patient: Total time spent is greater than 50% in coordination of care (as documented) at patient's floor/unit and/or counseling patient: Coding Level of Care Code 07491 Subseq Hosp Care Lvl 3 Diagnoses Pneumonia due to COVID-19 virus U07.1; J12.82 Hypoxia R09.02 Acute respiratory failure with hypoxia J96.01 Chronic pain syndrome G89.4 Abnormal LFTs R79.89 Multifocal pneumonia J18.9 DVT prophylaxis Z29.9
[2021-02-17] MEDS: NYSTATIN/TRIAMCIN OINT 15 GM TUBE EXT SCH (16:34)
[2021-02-17] MEDS: LIDOCAINE 5% 1 PATCH TD SCH (16:34)
[2021-02-17] MEDS: ACETAMINOPHEN 500 MG TAB PO SCH (20:27)
[2021-02-17] MEDS: tiZANidine HCL 4 MG TABLET PO SCH (20:28)
[2021-02-18] MEDS: oxyCODONE/ACETAMINOPHEN 10-325 TAB PO PRN (03:23)
[2021-02-18] MEDS: AZITHROMYCIN 500 MG in DEXTROSE 5% 250 ML IV SCH (05:29)
[2021-02-18] MEDS: guaiFENesin 600 MG TABCR PO SCH ×2 (08:34→22:13)
[2021-02-18] MEDS: dexAMETHasone 6 MG in SYRINGE 0 ML IV SCH (08:34)
[2021-02-18] MEDS: NYSTATIN/TRIAMCIN OINT 15 GM TUBE EXT SCH (08:34)
[2021-02-18] MEDS: 4mg Daily x 14 days (eGFR >60 mL/min/1.73m2) PO SCH (08:34)
[2021-02-18] MEDS: ACETAMINOPHEN 500 MG TAB PO SCH ×2 (08:35→22:14)
[2021-02-18] MEDS: ZINC SULFATE 220 MG CAPSULE PO SCH (08:35)
[2021-02-18] MEDS: CHOLECALCIFEROL 1,000 UNITS 25 MCG TAB PO SCH (08:35)
[2021-02-18] MEDS: BACLOFEN 20 MG TAB PO SCH ×3 (08:35→22:14)
[2021-02-18] MEDS: GABAPENTIN 800 MG TAB PO SCH ×3 (08:35→22:14)
[2021-02-18] MEDS: FUROSEMIDE INJ 20 MG/2 ML VIAL IV SCH (08:35)
[2021-02-18] MEDS: ENOXAPARIN INJ 30 MG/0.3 ML SYR SQ SCH ×2 (08:36→22:14)
[2021-02-18] MEDS: LIDOCAINE 5% 1 PATCH TD SCH (14:23)
--- NOTE | 2021-02-18 19:55 | Hospitalist Progress Note ---
Date of Service February 18, 2021 Assessment & Plan (1) Pneumonia due to COVID-19 virus: Plan: Multifocal pneumonia due to COVID-19 virus/acute respiratory failure with hypoxia oxygen requirements 15L mask 02/18/2021 dexamethasone 6mg IV daily, Remdesivir LD 02/17 Zithromax 500mg IV daily, baricitinib started 02/16 last dose 03/02 Lasix 20mg IV given with good response flutter valve, incentive spirometer Lovenox prophylaxis (2) Hypoxia: Plan: acute hypoxic respiratory failure on 15L mask (3) Acute respiratory failure with hypoxia: Plan: Significant but stable (4) Chronic pain syndrome: Plan: Continue usual medications pain is in good control having low back pain from fall no fractures on lumbar x-ray, has h/o surgery pt does not want lidoderm did increase oxycodone, continue scheduled tylenol (5) Abnormal LFTs: Plan: AST 85, ALT 100. Follow serially in a.m., transaminitis secondary to Covid infection has resolved (6) Multifocal pneumonia: Plan: See above (7) DVT prophylaxis: Plan: enoxaparin 0.5 mg bid Admission and Anticipated Discharge Date Admission Date: February 13, 2021 Subjective patient feels slight improvement with his dyspnea, frequent cough that is producing lessening sputum, at times is bloody tinged c/o persistent low back pain consistent with prehospital issues he is on 15L mask today Review of Systems Review of Systems: Moderate distress and fatigue no headache, no visual changes no speech or swallowing issues no chest pain, pressure or palpitations Continue shortness of breath, nonproductive cough or wheezes no abdominal pain, nausea or vomiting, no diarrhea no dysuria, hematuria or frequency no focal joint pain or swelling no back pain, CVA tenderness or radicular pain no bruising, bleeding complained of longstanding itchy rash to his back prehospital no focal signs of weakness or numbness or altered sensation no complaints of anxiety or depression.. Physical Exam Physical Exam: The patient appeared mild to moderate respiratory distress Vital signs as documented. Head exam is normocephalic atraumatic Neck is without JVD, thyromegaly, or carotid bruits. Lungs are coarse bilaterally in all lung roman, tachypnea Cardiac exam, Rhythm is regular.. No murmurs, rubs or gallops. Abdominal exam reveals normal bowel sounds, soft non tender, no masses Extremities are nonedematous and both pedal pulses are present Neurologic exam is alert and oriented, no focal loss of strength or sensation Skin is with keratosis across his back patient claims them to be itchy Psychologically is without concerns for anxiety or depression.. Results & Data Results & Data ([facility]) Vital Signs (Past 12 Hours) Vital Signs Temp Pulse Pulse Resp BP Pulse Ox Pulse Ox 02/18/21 17:00 97 02/18/21 16:44 61 02/18/21 15:03 98.1 F 72 18 125/69 92 02/18/21 12:57 98 02/18/21 11:34 98.2 F 68 22 106/58 L 97 PG Care Time/CCT Total # of Minutes Spent Total Time Spent with Patient: Total time spent is greater than 50% in coordination of care (as documented) at patient's floor/unit and/or counseling patient: Coding Level of Care Code 00973 Subseq Hosp Care Lvl 2 Diagnoses Pneumonia due to COVID-19 virus U07.1; J12.82 Hypoxia R09.02 Acute respiratory failure with hypoxia J96.01 Chronic pain syndrome G89.4 Abnormal LFTs R79.89 Multifocal pneumonia J18.9 DVT prophylaxis Z29.9
[2021-02-18] MEDS: tiZANidine HCL 4 MG TABLET PO SCH (22:13)
[2021-02-19] MEDS: AZITHROMYCIN 500 MG in DEXTROSE 5% 250 ML IV SCH (05:43)
[2021-02-19] MEDS: dexAMETHasone 6 MG in SYRINGE 0 ML IV SCH (08:08)
[2021-02-19] MEDS: GABAPENTIN 800 MG TAB PO SCH ×3 (08:15→20:06)
[2021-02-19] MEDS: CHOLECALCIFEROL 1,000 UNITS 25 MCG TAB PO SCH (08:15)
[2021-02-19] MEDS: ENOXAPARIN INJ 30 MG/0.3 ML SYR SQ SCH ×2 (08:15→20:05)
[2021-02-19] MEDS: ACETAMINOPHEN 500 MG TAB PO SCH ×2 (08:15→20:04)
[2021-02-19] MEDS: BACLOFEN 20 MG TAB PO SCH ×3 (08:15→20:07)
[2021-02-19] MEDS: ZINC SULFATE 220 MG CAPSULE PO SCH (08:15)
[2021-02-19] MEDS: guaiFENesin 600 MG TABCR PO SCH ×2 (08:15→20:05)
[2021-02-19] MEDS: NYSTATIN/TRIAMCIN OINT 15 GM TUBE EXT SCH (08:16)
[2021-02-19] MEDS: FUROSEMIDE INJ 20 MG/2 ML VIAL IV SCH (09:13)
[2021-02-19] MEDS: 4mg Daily x 14 days (eGFR >60 mL/min/1.73m2) PO SCH (09:20)
[2021-02-19] MEDS: oxyCODONE HCL IR 5 MG TAB (IMMEDIATE RELEASE) PO PRN (12:18)
[2021-02-19] MEDS: LIDOCAINE 5% 1 PATCH TD SCH (15:48)
--- NOTE | 2021-02-19 19:26 | Hospitalist Progress Note ---
Date of Service February 19, 2021 Assessment & Plan (1) Pneumonia due to COVID-19 virus: Plan: Multifocal pneumonia due to COVID-19 virus/acute respiratory failure with hypoxia oxygen requirements have gone down but remains subjectively dyspneic dexamethasone 6mg IV daily, Remdesivir LD 02/17 Zithromax 500mg IV daily, baricitinib started 02/16 last dose 03/02 Lasix 20mg IV given with good response flutter valve, incentive spirometer Lovenox prophylaxis (2) Hypoxia: Plan: acute hypoxic respiratory failure Resolving we will do two-step prior to going home (3) Acute respiratory failure with hypoxia: Plan: Resolving (4) Chronic pain syndrome: Plan: Continue usual medications pain is in good control having low back pain from fall no fractures on lumbar x-ray, has h/o surgery pt does not want lidoderm did increase oxycodone, continue scheduled tylenol (5) Abnormal LFTs: Plan: AST 85, ALT 100. Follow serially in a.m., transaminitis secondary to Covid infection has resolved (6) Multifocal pneumonia: Plan: See above (7) DVT prophylaxis: Plan: enoxaparin 0.5 mg bid Admission and Anticipated Discharge Date Admission Date: February 13, 2021 Subjective patient feels slight improvement with his dyspnea, frequent cough that is producing lessening sputum, at times is bloody tinged c/o persistent low back pain consistent with prehospital issues Room her oxygen today but gets dyspneic with even conversation Review of Systems Review of Systems: Moderate distress and fatigue no headache, no visual changes no speech or swallowing issues no chest pain, pressure or palpitations Continue shortness of breath even with casual conversation, nonproductive cough or wheezes no abdominal pain, nausea or vomiting, no diarrhea no dysuria, hematuria or frequency no focal joint pain or swelling no back pain, CVA tenderness or radicular pain no bruising, bleeding complained of longstanding itchy rash to his back prehospital no focal signs of weakness or numbness or altered sensation no complaints of anxiety or depression.. Physical Exam Physical Exam: The patient appeared mild to moderate respiratory distress Vital signs as documented. Head exam is normocephalic atraumatic Neck is without JVD, thyromegaly, or carotid bruits. Lungs are coarse bilaterally in all lung roman, tachypnea Cardiac exam, Rhythm is regular.. No murmurs, rubs or gallops. Abdominal exam reveals normal bowel sounds, soft non tender, no masses Extremities are nonedematous and both pedal pulses are present Neurologic exam is alert and oriented, no focal loss of strength or sensation Skin is with keratosis across his back patient claims them to be itchy Psychologically is without concerns for anxiety or depression.. Results & Data Results & Data ([facility]) Vital Signs (Past 12 Hours) Vital Signs Temp Pulse Resp BP Pulse Ox 02/19/21 15:35 98.1 F 73 16 141/82 H 98 PG Care Time/CCT Total # of Minutes Spent Total Time Spent with Patient: Total time spent is greater than 50% in coordination of care (as documented) at patient's floor/unit and/or counseling patient: Coding Level of Care Code 85706 Subseq Hosp Care Lvl 2 Diagnoses Pneumonia due to COVID-19 virus U07.1; J12.82 Hypoxia R09.02 Acute respiratory failure with hypoxia J96.01 Chronic pain syndrome G89.4 Abnormal LFTs R79.89 Multifocal pneumonia J18.9 DVT prophylaxis Z29.9
[2021-02-19] MEDS: tiZANidine HCL 4 MG TABLET PO SCH (20:06)
[2021-02-20] MEDS: oxyCODONE HCL IR 5 MG TAB (IMMEDIATE RELEASE) PO PRN ×3 (06:28→20:52)
[2021-02-20] MEDS: ENOXAPARIN INJ 30 MG/0.3 ML SYR SQ SCH ×2 (09:39→20:51)
[2021-02-20] MEDS: dexAMETHasone 6 MG in SYRINGE 0 ML IV SCH (09:39)
[2021-02-20] MEDS: CHOLECALCIFEROL 1,000 UNITS 25 MCG TAB PO SCH (09:40)
[2021-02-20] MEDS: guaiFENesin 600 MG TABCR PO SCH ×2 (09:40→20:51)
[2021-02-20] MEDS: GABAPENTIN 800 MG TAB PO SCH ×3 (09:40→20:50)
[2021-02-20] MEDS: BACLOFEN 20 MG TAB PO SCH ×3 (09:40→20:52)
[2021-02-20] MEDS: NYSTATIN/TRIAMCIN OINT 15 GM TUBE EXT SCH (09:40)
[2021-02-20] MEDS: ZINC SULFATE 220 MG CAPSULE PO SCH (09:40)
[2021-02-20] MEDS: 4mg Daily x 14 days (eGFR >60 mL/min/1.73m2) PO SCH (09:56)
[2021-02-20] MEDS: FUROSEMIDE INJ 20 MG/2 ML VIAL IV SCH (09:56)
[2021-02-20] MEDS: ACETAMINOPHEN 500 MG TAB PO SCH ×2 (09:57→20:57)
[2021-02-20] MEDS: LIDOCAINE 5% 1 PATCH TD SCH (15:58)
--- NOTE | 2021-02-20 19:49 | Hospitalist Progress Note ---
Date of Service February 20, 2021 Assessment & Plan (1) Pneumonia due to COVID-19 virus: Plan: Multifocal pneumonia due to COVID-19 virus/acute respiratory failure with hypoxia oxygen requirements have gone down but remains subjectively dyspneic dexamethasone 6mg IV daily, Remdesivir LD 02/17 Zithromax completed baricitinib started 02/16 last dose 03/02 Lasix 20mg IV given with good response flutter valve, incentive spirometer Lovenox prophylaxis (2) Hypoxia: Plan: acute hypoxic respiratory failure Resolving we will do two-step prior to going home (3) Acute respiratory failure with hypoxia: Plan: Resolving (4) Chronic pain syndrome: Plan: Continue usual medications pain is in good control having low back pain from fall no fractures on lumbar x-ray, has h/o surgery pt does not want lidoderm did increase oxycodone, continue scheduled tylenol (5) Abnormal LFTs: Plan: AST 85, ALT 100. Follow serially in a.m., transaminitis secondary to Covid infection has resolved (6) Multifocal pneumonia: Plan: See above (7) DVT prophylaxis: Plan: enoxaparin 0.5 mg bid Admission and Anticipated Discharge Date Admission Date: February 13, 2021 Subjective patient feels slight improvement with his dyspnea, frequent cough that is producing lessening sputum, at times is bloody tinged c/o persistent low back pain consistent with prehospital issues Room air oxygen today but gets dyspneic with even conversation, did need 6L oxygen with ambulation, will test again in the am Review of Systems Review of Systems: Moderate distress and fatigue no headache, no visual changes no speech or swallowing issues no chest pain, pressure or palpitations Continue shortness of breath even with casual conversation, nonproductive cough or wheezes no abdominal pain, nausea or vomiting, no diarrhea no dysuria, hematuria or frequency no focal joint pain or swelling no back pain, CVA tenderness or radicular pain no bruising, bleeding complained of longstanding itchy rash to his back prehospital no focal signs of weakness or numbness or altered sensation no complaints of anxiety or depression.. Physical Exam Physical Exam: The patient appeared mild to moderate respiratory distress Vital signs as documented. Head exam is normocephalic atraumatic Neck is without JVD, thyromegaly, or carotid bruits. Lungs are coarse bilaterally in all lung roman, tachypnea Cardiac exam, Rhythm is regular.. No murmurs, rubs or gallops. Abdominal exam reveals normal bowel sounds, soft non tender, no masses Extremities are nonedematous and both pedal pulses are present Neurologic exam is alert and oriented, no focal loss of strength or sensation Skin is with keratosis across his back patient claims them to be itchy Psychologically is without concerns for anxiety or depression.. Results & Data Results & Data ([facility]) Vital Signs (Past 12 Hours) Vital Signs Temp Pulse Pulse Pulse Pulse Pulse Pulse 02/20/21 16:02 97.9 F 63 02/20/21 08:07 74 72 105 H 77 74 Pulse Pulse Resp Resp Resp Resp Resp 02/20/21 16:02 18 02/20/21 08:07 56 L 93 H 20 20 22 20 Resp Resp Resp BP Pulse Ox Pulse Ox Pulse Ox 02/20/21 16:02 132/74 93 02/20/21 08:07 20 18 18 86 L 86 L Pulse Ox Pulse Ox Pulse Ox Pulse Ox Pulse Ox 02/20/21 16:02 02/20/21 08:07 87 L 90 85 L 94 95 PG Care Time/CCT Total # of Minutes Spent Total Time Spent with Patient: Total time spent is greater than 50% in coordination of care (as documented) at patient's floor/unit and/or counseling patient: Coding Level of Care Code 31692 Subseq Hosp Care Lvl 2 Diagnoses Pneumonia due to COVID-19 virus U07.1; J12.82 Hypoxia R09.02 Acute respiratory failure with hypoxia J96.01 Chronic pain syndrome G89.4 Abnormal LFTs R79.89 Multifocal pneumonia J18.9 DVT prophylaxis Z29.9
[2021-02-20] MEDS: tiZANidine HCL 4 MG TABLET PO SCH (20:50)
[2021-02-21] MEDS: GABAPENTIN 800 MG TAB PO SCH ×2 (09:37→14:59)
[2021-02-21] MEDS: ZINC SULFATE 220 MG CAPSULE PO SCH (09:37)
[2021-02-21] MEDS: guaiFENesin 600 MG TABCR PO SCH (09:37)
[2021-02-21] MEDS: 4mg Daily x 14 days (eGFR >60 mL/min/1.73m2) PO SCH (09:38)
[2021-02-21] MEDS: CHOLECALCIFEROL 1,000 UNITS 25 MCG TAB PO SCH (09:38)
[2021-02-21] MEDS: BACLOFEN 20 MG TAB PO SCH ×2 (09:38→14:59)
[2021-02-21] MEDS: ACETAMINOPHEN 500 MG TAB PO SCH (09:38)
[2021-02-21] MEDS: FUROSEMIDE INJ 20 MG/2 ML VIAL IV SCH (09:39)
[2021-02-21] MEDS: NYSTATIN/TRIAMCIN OINT 15 GM TUBE EXT SCH (09:39)
[2021-02-21] MEDS: ENOXAPARIN INJ 30 MG/0.3 ML SYR SQ SCH (09:39)
[2021-02-21] MEDS: dexAMETHasone 6 MG in SYRINGE 0 ML IV SCH (09:39)
[2021-02-21] MEDS: LIDOCAINE 5% 1 PATCH TD SCH (14:59)
--- NOTE | 2021-02-21 18:10 | Discharge Summary ---
Date of Service February 21, 2021 Admission HPI Per Admitting Provider The patient is a 60-year-old male with chronic low back pain associated with previous surgeries, who presents with symptoms as noted above. Abnormal laboratories: AST 85, ALT 100, albumin 3.0, glucose 148. COVID-19 positive Chest x-ray with multifocal pneumonia Pulse ox 80% on room air, improved with 8 L oxygen mask to 95% Principal Diagnosis ACute respiratory failure with hypoxia COVID-19 positive test (U07.1, COVID-19) with Acute Pneumonia (J12.89, Other viral pneumonia) (If respiratory failure or sepsis present, add as separate assessment) Discharge Exam The patient appeared mild to moderate respiratory distress Vital signs as documented. Head exam is normocephalic atraumatic Neck is without JVD, thyromegaly, or carotid bruits. Lungs are coarse bilaterally in all lung roman tachypnea Cardiac exam, Rhythm is regular.. No murmurs, rubs or gallops. Abdominal exam reveals normal bowel sounds, soft non tender, no masses Extremities are nonedematous and both pedal pulses are present Neurologic exam is alert and oriented, no focal loss of strength or sensation Chronic low back pain persists Skin is without bruises or rashes Psychologically is without concerns for anxiety or depression.. Discharge Data Allergies Allergy/AdvReac Type Severity Reaction Status Date / Time No Known Allergies Allergy Unknown NKA Verified 02/13/21 00:55 Consultations 02/13/21 01:47 ED Decision to Admit Stat Hospital Course (1) Pneumonia due to COVID-19 virus: Multifocal pneumonia due to COVID-19 virus/acute respiratory failure with hypoxia oxygen requirements have gone down but remains subjectively dyspneic dexamethasone 6mg discharged on oral medication Remdesivir LD 02/17 Zithromax completed baricitinib started 02/16 not be discharged on baricitinib Continue to encourage use of flutter valve, incentive spirometer (2) Hypoxia: acute hypoxic respiratory failure Resolving repeat ambulatory oxygen testing does not require home oxygen at this time (3) Acute respiratory failure with hypoxia: Resolving (4) Chronic pain syndrome: Continue usual medications pain is in good control having low back pain from fall no fractures on lumbar x-ray, has h/o surgery pt does not want lidoderm did increase oxycodone, continue regimen follow-up with pain management (5) Abnormal LFTs: AST 85, ALT 100. Follow serially in a.m., transaminitis secondary to Covid infection has resolved (6) Multifocal pneumonia: See above Total Time Total Time Spent Total Time Spent (In Minutes): It required greater than 30 minutes to prepare this patient for discharge Discharge Plan Discharge Items Patient Disposition: Home - Self-Care Reason For Visit: COVID-19 PNEUMONIA / ACUTE RESP FAILURE W/ HYPOXIA Discharge Diagnosis: respiratory failure secondary to covid pneumonia Activity: Per Instructions section Activity Comment: slowly increase your activity Non-emergency contact: Primary Care Provider Call non-emergency contact if: your symptoms worsen and you have a fever Follow-up/Referrals: PCP,NO [Primary Care Provider] - Diet: Regular Addtl Attending Provider Instructions: You have been diagnosed with covid infection, it would be recommended that you quarantine yourself for 10 days from your first test or first symptoms, and if at the 10th day you have no symptoms the you can come off quarantine but use common sense precautions. Quarantine means attempting to stay away from people who have not had an active covid infection in the past, and if you have to be around others to wear a mask even if you are indoors, do not share a room to sleep in with others until you are out of quarantine. If you still have symptoms at the 10th day, continue to quarantine until you are symptom free for 48 hours You will likely be very tired and weak at home for next 1 month. Please will increase her activity level. Do not overdo it. Please see your family doctor for confirmation as you continue to improve Pending Studies at Discharge: No Stand-Alone Forms: [facility], Smoking Cessation Medications and DC Order Prescriptions: New dexamethasone [Decadron] 6 mg tablet 6 mg PO DAILY Qty: 5 RF: 0 Continued tizanidine 4 mg tablet 2 mg PO HS RF: 0 oxycodone-acetaminophen 10-325 mg tablet 1 tab PO Q6 PRN (Reason: Pain) RF: 0 gabapentin 800 mg tablet 800 mg PO TID RF: 0 baclofen 10 mg tablet 10 - 20 mg PO TID RF: 0 albuterol sulfate 90 mcg/actuation HFA aerosol inhaler 1 - 2 puff INHALATION UD PRN (Reason: Shortness Of Breath Or Wheezing) RF: 0 Discharge Orders: Discharge Order (Routine); Ordered 02/21/21 Ordered By: Jt Spann/Other Patient Handouts: Decadron Oral Tablet 6 mg Admission Data Admit Date/Time: 02/13/21 02:22 Attending Provider: Jt Dick Admit Provider: Paxton Cisse Primary Care Provider: PCP,NO Other Providers: Paxton Cisse Other Interventions: Discharge Summary Assessment (RN) Last Done: 02/21/21 16:40 Coding Level of Care Code D/C DAY MANAGEMENT >30 MINS Diagnoses Pneumonia due to COVID-19 virus U07.1; J12.82 Hypoxia R09.02 Acute respiratory failure with hypoxia J96.01 Chronic pain syndrome G89.4 Abnormal LFTs R79.89 Multifocal pneumonia J18.9
== END 2021-02-21 19:10 | disposition home or self-care (01) | DRG 177 ==
LOC: ED 00:06 → SUATTDRO 02:22 → EDINP 02:22 → 2S 02-15 15:37 → 3W 02-19 03:35
DX: J96.01 Acute respiratory failure with hypoxia; U07.1 COVID-19; J12.82 Pneumonia due to coronavirus disease 2019; Z87.891 Personal history of nicotine dependence; G89.4 Chronic pain syndrome; R73.9 Hyperglycemia, unspecified